=== PATIENT | male | born 1965 | race Caucasian/White ===

== ENCOUNTER → 2020-07-23 | Outpatient (CLI) | payer BC ==
--- NOTE | 2020-07-23 11:29 | Diagnostic Imaging Report ---
Abdominal Ultrasound Clinical Diagnosis: Abdominal pain Comparison: None Technique: Multiple transaxial and longitudinal images were obtained through the abdomen with real time ultrasonography. A low-frequency curvilinear transducer was utilized. Multiple images were submitted for interpretation. Report: Liver: The liver measures 14.9 cm in the right midaxillary line. There are no focal masses. There is a small simple looking cyst measuring 1.2 x 1.4 x 1.3 cm. The echogenicity is within normal limits. Spleen: The spleen measures 10.6 cm in the left mid axillary line. There are no focal masses or cysts. Gallbladder: The transverse diameter is normal cm. The wall measures 2 mm. There is a 4 mm nonobstructive shadowing stone visualized. There is no sludge visualized. Sonographic Romeo's sign is negative. Biliary tree: There is no evidence of intra or extra hepatic biliary ductal dilatation. The common bile duct measures 5 mm. Portal vein: The portal vein measures 6 mm. There is hepatopedal flow. Hepatic veins: Unremarkable. Pancreas: The pancreas is not well seen secondary to overlying bowel gas. Ascites: None Pleural Effusion: None Right kidney: The right kidney measures 12.1 x 6.9 x 4.9 cm. There is no evidence of hydronephrosis, mass, cyst. Left kidney: The left kidney measures 12.9 x 5.8 x 4.9 cm . There is no evidence of hydronephrosis, mass, cyst. IVC/Aorta: Partially seen segments demonstrate no abnormality. Impression: A simple appearing liver cyst as above. Small nonobstructive gallstone. No other significant abnormality on this Signed by: Patrick Eubanks MD on 07/23/2020 11:25 AM
== END ==
LOC: US 09:46
PROVIDERS: ATTEND Family Medicine
DX: R10.9 Unspecified abdominal pain (principal); K80.80 Other cholelithiasis without obstruction
CPT/HCPCS: 76700

== ENCOUNTER → 2020-08-08 | Outpatient (CLI) | payer BC | LOC: NM 08:38 | PROVIDERS: ATTEND Family Medicine | DX: R10.9 Unspecified abdominal pain (principal) | CPT/HCPCS: 78227; A9537 ==

== ENCOUNTER → 2024-12-20 | Day surgery (SDC) | payer BC ==
[~2024-12-20] MED LIST: BENICAR20 MG PO; CIALIS10 MG PO; COQ-10100 MG; FISH OIL 1,0001 EAC7; GLUCAGON FOR INJ 1 MG VIAL ONE; JUICE PLUS; LIDOCAINE HCL 2% LOCAL INJ 5 ML SDV VIAL INJ ONE; MIDAZOLAM HCL 2 MG/2 ML VIAL ONE; ONE DAILY FOR1 EAC2; PROPOFOL IV EMULSION 10 MG/ML 20 ML VIAL ONE; ROSUVASTATIN CA10 MG; VITAMIN C500 MG PO
[2024-12-20] MEDS: LACTATED RINGER'S 1,000 ML ONE (11:21)
[2024-12-20 13:11] VITALS: TEMP 98.5
[2024-12-20 13:50] VITALS: BP 125/82; PULSE 62; RESP 16
== END | disposition home or self-care (01) ==
LOC: OR 10:44
PROVIDERS: ATTEND Internal Medicine Gastroenterology
DX: Z12.11 Encounter for screening for malignant neoplasm of colon (principal); D12.3 Benign neoplasm of transverse colon; D12.4 Benign neoplasm of descending colon; K57.30 Diverticulosis of large intestine without perforation or abscess without bleeding; G47.33 Obstructive sleep apnea (adult) (pediatric); I10 Essential (primary) hypertension; E78.5 Hyperlipidemia, unspecified; Z71.89 Other specified counseling; Z01.810 Encounter for preprocedural cardiovascular examination; Z79.899 Other long term (current) drug therapy; Z68.30 Body mass index [BMI] 30.0-30.9, adult; Z71.3 Dietary counseling and surveillance
CPT/HCPCS: 45385; 93005; J1610; J2003; J2250; J2704; J7121